=== PATIENT | female | born 1970 | race Caucasian/White ===

== ENCOUNTER → 2017-09-13 12:21 | Outpatient (CLI) | payer OTHER, SELFPAY ==
[2017-09-13 13:23] LABS: AST(SGOT) 29 U/L (15-37); Alanine Aminotransfer ALT/SGPT 52 U/L (13-56); Albumin, Serum 3.7 g/dL (3.2-5.0); Alkaline Phosphatase 40 U/L (45-117); Anion Gap 9 (5-15); BUN 10 mg/dL (7-18); BUN/Creat Ratio 11.5 RATIO (10-20); Calcium,Total 8.6 mg/dL (8.5-10.1); Chloride 106 mmol/L (98-107); Creatinine, Serum 0.87 mg/dL (0.55-1.02); EST Glomerular Filtration Rate 75 mL/min (>60); Est Glom Filt Rate - Afr Amer 91 mL/min (>60); Globulin 3.7 g/dL (2.2-4.2); Glucose 102 mg/dL (74-106); Protein, Total 7.4 g/dL (6.4-8.2); Sodium Level 140 mmol/L (136-145); Thyroid Stim Hormone (TSH) 1.15 uIU/mL (0.358-3.74)
== END ==
PROVIDERS: Family Provider Family Medicine; PCP Family Medicine; Visit Provider Family Medicine
DX: I10 Essential (primary) hypertension (principal); E03.9 Hypothyroidism, unspecified
CPT/HCPCS: 36415; 80053; 84443

== ENCOUNTER → 2018-02-01 13:04 | Outpatient (CLI) | payer OTHER, SELFPAY ==
[2018-02-01 15:55] LABS: Hemoglobin A1c 5.6 % (4.2-6.3)
[2018-02-01 16:04] LABS: Vitamin D,25 Hydroxy 38.7 ng/mL (29.95-100.01)
[2018-02-01 16:07] LABS: AST(SGOT) 32 U/L (15-37); Alanine Aminotransfer ALT/SGPT 71 U/L (13-56); Albumin, Serum 3.6 g/dL (3.2-5.0); Alkaline Phosphatase 35 U/L (45-117); Anion Gap 9 (5-15); BUN 14 mg/dL (7-18); BUN/Creat Ratio 17.8 RATIO (10-20); Calcium,Total 8.5 mg/dL (8.5-10.1); Chloride 103 mmol/L (98-107); Cholesterol 218 mg/dL (200); Creatinine, Serum 0.79 mg/dL (0.55-1.02); EST Glomerular Filtration Rate 84 mL/min (>60); Est Glom Filt Rate - Afr Amer 101 mL/min (>60); Free T3 4.6 pg/mL (2.18-3.98); Globulin 3.6 g/dL (2.2-4.2); Glucose 87 mg/dL (74-106); High Density Lipoprotein 36 mg/dL; Potassium 4.1 mmol/L (3.5-5.1); Protein, Total 7.2 g/dL (6.4-8.2); Sodium Level 139 mmol/L (136-145); T4 Free Direct 0.83 ng/dL (0.76-1.46); Thyroid Stim Hormone (TSH) 0.49 uIU/mL (0.358-3.74); Triglycerides 240 mg/dL; Very Low Density Lipoprotein 48 mg/dL (5-40)
[2018-02-01 16:52] LABS: Absolute Lymphocyte Count 2.78 X10^3/ul (0.83-4.51); Absolute Neutrophil Count 4.3 X10^3/uL (2.0-7.7); Basophil# 0.03 X10^3/uL; Basophil% 0.4 % (0-1); Eosinophil# 0.29 X10^3/uL; Eosinophils% 3.4 % (0-5); Hemoglobin 13.3 g/dl (12.0-15.0); Lymphocyte # 2.78 X10^3/ul (4.0); Lymphocyte % 32.7 % (19-41); Mean Corp Hgb Conc 32.4 g/gl (32-36); Mean Corpuscular Hgb 29.8 pg (27.0-32.0); Mean Corpuscular Volume 91.9 fL (81-99); Mean Platelet Vol. 9.6 fl (6.2-12.0); Monocyte# 1.08 X10^3/uL; Monocyte% 12.7 % (0-10); Neutrophil % 50.6 % (47-70); Platelet Count 340 K/mm3 (150-450); RBC Distribution Width CV 13.5 % (11.6-14.6); RBC Distribution Width SD 44.4 fl (35.1-43.9); Red Blood Count 4.46 M/mm3 (4.2-5.4); White Blood Count 8.5 K/mm3 (4.4-11.0)
[2018-02-01 17:02] LABS: POSITIVE COUNT NO; POSITIVE DIFFERENTIAL NO; POSITIVE MORPHOLOGY NO
== END ==
PROVIDERS: Family Provider Family Medicine; PCP Family Medicine; Referring Provider Internal Medicine Endocrinology, Diabetes & Metabolism; Visit Provider Internal Medicine Endocrinology, Diabetes & Metabolism
DX: E89.0 Postprocedural hypothyroidism (principal); R73.03 Prediabetes; E55.9 Vitamin D deficiency, unspecified
CPT/HCPCS: 36415; 80053; 80061; 82306; 83036; 84439; 84443; 84481; 85025

== ENCOUNTER → 2018-09-01 | Outpatient (CLI) | payer OTHER, SELFPAY ==
[2018-09-01 12:32] LABS: Hemoglobin A1c 5.6 % (4.2-6.3)
[2018-09-01 12:42] LABS: ALB/GLOB Ratio 0.9 RATIO (0.9-2.4); AST(SGOT) 25 U/L (15-37); Alanine Aminotransfer ALT/SGPT 49 U/L (13-56); Albumin, Serum 3.7 g/dL (3.2-5.0); Alkaline Phosphatase 39 U/L (45-117); Anion Gap 6 (5-15); BUN 14 mg/dL (7-18); BUN/Creat Ratio 16.3 RATIO (10-20); Calcium,Total 8.8 mg/dL (8.5-10.1); Chloride 105 mmol/L (98-107); Cholesterol 236 mg/dL (200); Creatinine, Serum 0.86 mg/dL (0.55-1.02); EST Glomerular Filtration Rate 75 mL/min (>60); Est Glom Filt Rate - Afr Amer 91 mL/min (>60); Free T3 5.5 pg/mL (2.18-3.98); Globulin 3.9 g/dL (2.2-4.2); Glucose 93 mg/dL (74-106); High Density Lipoprotein 39 mg/dL; Potassium 4.3 mmol/L (3.5-5.1); Protein, Total 7.6 g/dL (6.4-8.2); Sodium Level 140 mmol/L (136-145); T4 Free Direct 0.79 ng/dL (0.76-1.46); Thyroid Stim Hormone (TSH) 1.33 uIU/mL (0.358-3.74); Triglycerides 409 mg/dL
== END | disposition home or self-care (01) ==
PROVIDERS: Family Provider Family Medicine; PCP Family Medicine; Referring Provider Internal Medicine Endocrinology, Diabetes & Metabolism; Visit Provider Internal Medicine Endocrinology, Diabetes & Metabolism
DX: R73.03 Prediabetes (principal); E89.0 Postprocedural hypothyroidism
CPT/HCPCS: 36415; 80053; 80061; 83036; 84439; 84443; 84481

== ENCOUNTER → 2019-03-28 15:02 | Outpatient (CLI) | payer OTHER, SELFPAY ==
[2019-03-28 17:14] LABS: Hemoglobin A1c 5.9 % (4.2-6.3)
[2019-03-28 17:30] LABS: ALB/GLOB Ratio 1.1 RATIO (0.9-2.4); AST(SGOT) 25 U/L (15-37); Alanine Aminotransfer ALT/SGPT 55 U/L (13-56); Albumin, Serum 3.8 g/dL (3.2-5.0); Alkaline Phosphatase 38 U/L (45-117); Anion Gap 9 (5-15); BUN 13 mg/dL (7-18); BUN/Creat Ratio 15.3 RATIO (10-20); Calcium,Total 8.5 mg/dL (8.5-10.1); Chloride 104 mmol/L (98-107); Cholesterol 216 mg/dL (200); Creatinine, Serum 0.85 mg/dL (0.55-1.02); EST Glomerular Filtration Rate 76 mL/min (>60); Est Glom Filt Rate - Afr Amer 92 mL/min (>60); Free T3 3.7 pg/mL (2.18-3.98); Globulin 3.4 g/dL (2.2-4.2); Glucose 81 mg/dL (74-106); High Density Lipoprotein 35 mg/dL; Potassium 3.9 mmol/L (3.5-5.1); Protein, Total 7.2 g/dL (6.4-8.2); Sodium Level 139 mmol/L (136-145); Triglycerides 278 mg/dL; Very Low Density Lipoprotein 56 mg/dL (5-40)
== END ==
PROVIDERS: Family Provider Family Medicine; PCP Family Medicine; Referring Provider Internal Medicine Endocrinology, Diabetes & Metabolism; Visit Provider Internal Medicine Endocrinology, Diabetes & Metabolism
DX: E89.0 Postprocedural hypothyroidism (principal); E78.1 Pure hyperglyceridemia; R63.5 Abnormal weight gain
CPT/HCPCS: 36415; 80053; 80061; 83036; 84443; 84481

== ENCOUNTER → 2019-07-12 13:29 | Outpatient (CLI) | payer OTHER, SELFPAY ==
--- NOTE | 2019-07-12 13:51 | BI_ITS ---
MAMMOGRAPHY - BILATERAL SCREENING REASON FOR EXAM: Female, 49 years old. Routine annual screening examination. PERTINENT HISTORY: Non-contributory. TECHNIQUE: Digital bilateral breast tomi (3D mammographic acquisition) in the CC and MLO projections. 2-D mediolateral oblique (MLO) and craniocaudad (CC) views of both breasts were obtained. CAD: Full Field Digital Mammography with Computer Added Detection was performed. COMPARISON: Comparison is made with prior study dated November 05, 2016 and January 15, 2015. FINDINGS: Breast Composition: There are scattered areas of fibroglandular density. There are no dominant masses or suspicious calcifications. There is a 4.1 mm well-defined nodule in the central slightly medial portion of the right breast. Correlation with ultrasound is recommended. No other significant abnormalities are identified. BI/SCREEN MAMM (CAD) W/TOMI BILAT IMPRESSION: 4.1 mm well-defined nodule in the central slightly medial portion of the right breast. Correlation with ultrasound is recommended. ASSESSMENT CATEGORY: BIRADS Category 0: Incomplete. Need additional imaging evaluation. A letter regarding these results will be sent to the patient by the facility within 30 days. Approximately 10% of breast cancers are not detected by mammography. A normal mammogram should not delay biopsy of a clinically suspicious abnormality. [id number] Electronically Signed: Murali Bond, at 9:04 EST , Service support ,
== END ==
PROVIDERS: PCP Student in an Organized Health Care Education/Training Program; Referring Provider Student in an Organized Health Care Education/Training Program; Visit Provider Student in an Organized Health Care Education/Training Program
DX: Z12.31 Encounter for screening mammogram for malignant neoplasm of breast (principal)
CPT/HCPCS: 77063; 77067

== ENCOUNTER → 2019-07-18 11:00 | Outpatient (CLI) | payer OTHER, SELFPAY ==
--- NOTE | 2019-07-18 11:01 | US_ITS ---
STUDY: ULTRASOUND BREAST - RIGHT REASON FOR EXAM: Female, 49 years old. Abnormal screening mammogram. TECHNIQUE: Axial and longitudinal images of the RIGHT breast were performed with a high resolution ultrasound transducer. # OF IMAGES: 45 COMPARISON: Comparison is made with prior mammogram dated July 12, 2019. FINDINGS: RIGHT Breast: There is a 3 mm x 4 mm x 3 mm benign appearing lymph node at the 12:00 position of the breast at 1 cm from nipple. The mammographic out amount of post was 5 mm x 7 mm x 4 mm hypoechoic cystic and solid nodule at the 1:00 position of the breast at 1 cm from nipple. A biopsy recommended. US/Breast Limited Unilateral IMPRESSION: The mammographic abnormality corresponds to a 5 mm x 7 mm x 4 mm solid/cystic nodule at the 1:00 position of the breast at 1 cm from nipple. A biopsy is recommended for further evaluation. ASSESSMENT CATEGORY: BIRADS Category 4: Suspicious - Biopsy Should Be Considered. A letter regarding these results will be sent to the patient by the facility within 30 days. Electronically Signed: Murali Bond, at 12:53 EDT , Service support ,
== END ==
PROVIDERS: PCP Student in an Organized Health Care Education/Training Program; Referring Provider Student in an Organized Health Care Education/Training Program; Visit Provider Student in an Organized Health Care Education/Training Program
DX: R92.8 Other abnormal and inconclusive findings on diagnostic imaging of breast (principal)
CPT/HCPCS: 76642

== ENCOUNTER → 2019-07-25 06:29 | Outpatient (CLI) | payer OTHER, SELFPAY ==
[2019-07-25 07:09] LABS: Hematocrit 42.5 % (37-47); Mean Corp Hgb Conc 32.9 g/dL (32-36); Mean Corpuscular Hgb 30.8 pg (27.0-32.0); Mean Corpuscular Volume 93.6 fL (81-99); Mean Platelet Vol. 9.5 fl (6.2-12.0); Platelet Count 336 K/mm3 (150-450); RBC Distribution Width CV 12.9 % (11.6-14.6); RBC Distribution Width SD 44.5 fl (35.1-43.9); Red Blood Count 4.54 M/mm3 (4.2-5.4); White Blood Count 9.3 K/mm3 (4.4-11.0)
[2019-07-25 07:38] LABS: ALB/GLOB Ratio 1.2 RATIO (0.9-2.4); AST(SGOT) 28 U/L (15-37); Alanine Aminotransfer ALT/SGPT 53 U/L (13-56); Alkaline Phosphatase 41 U/L (45-117); Anion Gap 6 (5-15); BUN 12 mg/dL (7-18); BUN/Creat Ratio 13.4 RATIO (10-20); Calcium,Total 8.7 mg/dL (8.5-10.1); Chloride 106 mmol/L (98-107); Cholesterol 206 mg/dL (200); EST Glomerular Filtration Rate 72 mL/min (>60); Est Glom Filt Rate - Afr Amer 87 mL/min (>60); Globulin 3.4 g/dL (2.2-4.2); Glucose 101 mg/dL (74-106); High Density Lipoprotein 32 mg/dL; Potassium 3.7 mmol/L (3.5-5.1); Protein, Total 7.4 g/dL (6.4-8.2); Sodium Level 140 mmol/L (136-145); Triglycerides 158 mg/dL; Very Low Density Lipoprotein 32 mg/dL (5-40)
== END ==
PROVIDERS: PCP Student in an Organized Health Care Education/Training Program; Referring Provider Internal Medicine Endocrinology, Diabetes & Metabolism; Visit Provider Internal Medicine Endocrinology, Diabetes & Metabolism
DX: R73.03 Prediabetes (principal); I10 Essential (primary) hypertension; E78.2 Mixed hyperlipidemia
CPT/HCPCS: 36415; 80053; 80061; 83036; 85027

== ENCOUNTER → 2019-12-25 11:08 | Outpatient (CLI) | payer OTHER, SELFPAY ==
[2019-12-25 13:22] LABS: Vitamin D,25 Hydroxy 49.8 ng/mL
[2019-12-25 13:27] LABS: ALB/GLOB Ratio 0.9 RATIO (0.9-2.4); AST(SGOT) 23 U/L (15-37); Alanine Aminotransfer ALT/SGPT 35 U/L (13-56); Albumin, Serum 3.3 g/dL (3.2-5.0); Alkaline Phosphatase 37 U/L (45-117); Anion Gap 4 (5-15); BUN 11 mg/dL (7-18); BUN/Creat Ratio 14.2 RATIO (10-20); Calcium,Total 8.3 mg/dL (8.5-10.1); Chloride 107 mmol/L (98-107); Cholesterol 216 mg/dL (200); Creatinine, Serum 0.77 mg/dL (0.55-1.02); EST Glomerular Filtration Rate 85 mL/min (>60); Est Glom Filt Rate - Afr Amer 103 mL/min (>60); Free T3 3.7 pg/mL (2.18-3.98); Globulin 3.6 g/dL (2.2-4.2); Glucose 91 mg/dL (74-106); High Density Lipoprotein 40 mg/dL; Potassium 4.2 mmol/L (3.5-5.1); Protein, Total 6.9 g/dL (6.4-8.2); Sodium Level 137 mmol/L (136-145); T4 Free Direct 0.73 ng/dL (0.76-1.46); Thyroid Stim Hormone (TSH) 3.86 uIU/mL (0.358-3.74); Triglycerides 211 mg/dL; Very Low Density Lipoprotein 42 mg/dL (5-40)
== END ==
PROVIDERS: PCP Student in an Organized Health Care Education/Training Program; Referring Provider Internal Medicine Endocrinology, Diabetes & Metabolism; Visit Provider Internal Medicine Endocrinology, Diabetes & Metabolism
DX: E89.0 Postprocedural hypothyroidism (principal); E66.01 Morbid (severe) obesity due to excess calories; R73.03 Prediabetes; Z86.39 Personal history of other endocrine, nutritional and metabolic disease; E78.5 Hyperlipidemia, unspecified
CPT/HCPCS: 36415; 80053; 80061; 82306; 83036; 84439; 84443; 84481

== ENCOUNTER → 2020-07-28 15:24 | Outpatient (CLI) | payer OTHER, SELFPAY ==
[2020-07-28 16:37] LABS: ALB/GLOB Ratio 1.1 RATIO (0.9-2.4); AST(SGOT) 26 U/L (15-37); Alanine Aminotransfer ALT/SGPT 60 U/L (13-56); Albumin, Serum 3.8 g/dL (3.2-5.0); Alkaline Phosphatase 41 U/L (45-117); Anion Gap 7 (5-15); BUN 15 mg/dL (7-18); BUN/Creat Ratio 19.6 RATIO (10-20); Calcium,Total 8.7 mg/dL (8.5-10.1); Chloride 104 mmol/L (98-107); Cholesterol 230 mg/dL (200); Creatinine, Serum 0.77 mg/dL (0.55-1.02); EST Glomerular Filtration Rate 85 mL/min (>60); Est Glom Filt Rate - Afr Amer 103 mL/min (>60); Free T3 3.3 pg/mL (2.18-3.98); Globulin 3.5 g/dL (2.2-4.2); Glucose 95 mg/dL (74-106); High Density Lipoprotein 39 mg/dL; Potassium 3.9 mmol/L (3.5-5.1); Protein, Total 7.3 g/dL (6.4-8.2); Sodium Level 138 mmol/L (136-145); T4 Free Direct 0.64 ng/dL (0.76-1.46); Thyroid Stim Hormone (TSH) 2.48 uIU/mL (0.358-3.74); Triglycerides 311 mg/dL; Very Low Density Lipoprotein 62 mg/dL (5-40)
[2020-07-28 16:43] LABS: Hemoglobin A1c 5.6 % (3.8-5.6)
== END ==
PROVIDERS: PCP Student in an Organized Health Care Education/Training Program; Visit Provider Internal Medicine Endocrinology, Diabetes & Metabolism
DX: E89.0 Postprocedural hypothyroidism (principal); R73.03 Prediabetes; Z86.39 Personal history of other endocrine, nutritional and metabolic disease; E78.5 Hyperlipidemia, unspecified; E66.01 Morbid (severe) obesity due to excess calories
CPT/HCPCS: 36415; 80053; 80061; 83036; 84439; 84443; 84481

== ENCOUNTER → 2021-01-07 07:57 | Outpatient (CLI) | payer OTHER, SELFPAY ==
[2021-01-07 08:52] LABS: AST(SGOT) 28 U/L (15-37); Alanine Aminotransfer ALT/SGPT 42 U/L (13-56); Albumin, Serum 3.7 g/dL (3.2-5.0); Alkaline Phosphatase 46 U/L (45-117); Anion Gap 5 (5-15); BUN 17 mg/dL (7-18); Calcium,Total 8.9 mg/dL (8.5-10.1); Chloride 108 mmol/L (98-107); Cholesterol 229 mg/dL (200); Creatinine, Serum 0.85 mg/dL (0.55-1.02); EST Glomerular Filtration Rate 75 mL/min (>60); Est Glom Filt Rate - Afr Amer 91 mL/min (>60); Free T3 4.7 pg/mL (2.18-3.98); Globulin 3.8 g/dL (2.2-4.2); Glucose 108 mg/dL (74-106); High Density Lipoprotein 34 mg/dL; Potassium 4.2 mmol/L (3.5-5.1); Protein, Total 7.5 g/dL (6.4-8.2); Sodium Level 137 mmol/L (136-145); Thyroid Stim Hormone (TSH) 2.96 uIU/mL (0.358-3.74); Triglycerides 222 mg/dL; Very Low Density Lipoprotein 44 mg/dL (5-40)
== END ==
PROVIDERS: PCP Student in an Organized Health Care Education/Training Program; Referring Provider Internal Medicine Endocrinology, Diabetes & Metabolism; Visit Provider Internal Medicine Endocrinology, Diabetes & Metabolism
DX: E89.0 Postprocedural hypothyroidism (principal); E78.5 Hyperlipidemia, unspecified; R73.03 Prediabetes; E66.01 Morbid (severe) obesity due to excess calories; E55.9 Vitamin D deficiency, unspecified
CPT/HCPCS: 36415; 80053; 80061; 84443; 84481

== ENCOUNTER 2021-07-29 07:30 | Outpatient (CLI) | payer OTHER, SELFPAY ==
[2021-07-29 08:19] LABS: Hematocrit 42.9 % (37-47); Hemoglobin 14.7 g/dL (12.0-15.0); Mean Corp Hgb Conc 34.3 g/dL (32-36); Mean Corpuscular Hgb 31.7 pg (27.0-32.0); Mean Corpuscular Volume 92.5 fL (81-99); Mean Platelet Vol. 9.9 fl (6.2-12.0); Platelet Count 311 K/mm3 (150-450); RBC Distribution Width CV 13.2 % (11.6-14.6); RBC Distribution Width SD 45.3 fl (35.1-43.9); Red Blood Count 4.64 M/mm3 (4.2-5.4); White Blood Count 8.3 K/mm3 (4.4-11.0)
[2021-07-29 08:52] LABS: AST(SGOT) 26 U/L (15-37); Alanine Aminotransfer ALT/SGPT 44 U/L (13-56); Albumin, Serum 3.5 g/dL (3.2-5.0); Alkaline Phosphatase 48 U/L (45-117); Anion Gap 4 (5-15); BUN 14 mg/dL (7-18); BUN/Creat Ratio 17.7 RATIO (10-20); Calcium,Total 8.9 mg/dL (8.5-10.1); Chloride 107 mmol/L (98-107); Cholesterol 224 mg/dL (200); Creatinine, Serum 0.79 mg/dL (0.55-1.02); EST Glomerular Filtration Rate 82 mL/min (>60); Est Glom Filt Rate - Afr Amer 99 mL/min (>60); Globulin 3.4 g/dL (2.2-4.2); Glucose 110 mg/dL (74-106); High Density Lipoprotein 37 mg/dL; Potassium 4.1 mmol/L (3.5-5.1); Protein, Total 6.9 g/dL (6.4-8.2); Sodium Level 138 mmol/L (136-145); Triglycerides 217 mg/dL; Very Low Density Lipoprotein 43 mg/dL (5-40)
== END 2021-07-29 23:59 | disposition home or self-care (01) ==
PROVIDERS: PCP Student in an Organized Health Care Education/Training Program; Referring Provider Student in an Organized Health Care Education/Training Program; Visit Provider Student in an Organized Health Care Education/Training Program
DX: I10 Essential (primary) hypertension (principal)
CPT/HCPCS: 36415; 80053; 80061; 85027

== ENCOUNTER 2023-08-11 13:30 | Outpatient (RCR) | payer OTHER, SELFPAY ==
--- NOTE | 2023-06-30 14:03 | HP.PTEVAL ---
Patient's Visit Information Visit Information Visit Information: AGATA BAHENA is a 53 year old F referred to Physical Therapy by Dr. Gurvinder Kaur DPM with a diagnosis of Achilles tendinitis left, M76.62; Calcaneal spur left M77.32. Date of Evaluation: 06/30/23 Physical Therapist: Pedrito Biswas Visit Plan Frequency: 2x /Week Duration: 6 Weeks Plan: Continue with eccentric calf strengthening, LE flexibility exercises, ankle strengthening, and balance exercises. Use manual therapy, modalities, and dry needling as needed for pain control. Subjective Subjective: Pt. is a 53 y.o. female who has been having left heel/foot pain for about 3-4 years with no specific injury that she is aware of. 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 Pt. denies any numbness or tingling in her foot. Pt. will wear either tennis shoes or crock shoes which are less than a year old. Pt. has difficulty with first step in the morning, getting out of a car, standing/walking for longer than 30 minutes, ascending/descending stairs, housework, yard work, and work activity. 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 Her goal with physical therapy is to get rid of the pain and know what exercises to do as well as avoid surgery. She has had previous physical therapy for plantar fasciitis in the past. Pt. denies any pain currently, at worst 8/10 and describes the pain as dull and occasionally sharp. She just finished a steriod pack which has helped. Her PMH includes HBP controlled with medication, , thyroid removed, right hand carpal tunnel surgery, and tubal ligation. Pt. lives with her family in a two story home. Her hobbies include raising ducks and geese and riding [employer]. Objective Objective: Palpation- No tenderness to palpation Left ankle AROM DF 10 degrees, PF 35 degrees, Inversion 54 degrees, Eversion 15 degrees Right ankle AROM DF 14 degrees, PF 38 degrees, Inversion 58 degrees, Eversion 10 degrees Left LE strength hip flexion 5/5, abduction 5/5, adduction 5/5, extension 5/5, knee flexion 5/5, knee extension 5/5, ankle DF 5/5, PF 4+/5, Inversion 5/5, Eversion 5/5 Right LE strength hip flexion 5/5, abduction 5/5, adduction 5/5, extension 5/5, knee flexion 5/5, knee extension 5/5, ankle DF 5/5, PF 5/5, Inversion 5/5, Eversion 5/5 Tandem stance left [30 secs], right [30 secs] SLS left [30 secs] right [15 secs] Special tests- Anterior drawer [-], Talar tilt [-], Metatarsal squeeze [-], Bahena's test [-], Windlass test [-] Gait- Pt. ambulates with no gait deviations. Stairs- Pt. ascends/descends stairs with alternating step pattern and handrail. Balance/Special Test Scores Lower Extremity Functional Score: 70 Goals Goal 1:: Pt. will report no pain with first step in the morning. Goal Time Frame: 4-6 Weeks Goal 2:: Pt. will be able to stand/walk for at least 1 hour with left foot/heel pain < 3/10. Goal Time Frame: 4-6 Weeks Goal 3:: Pt. will be able to get into/out of the car with no pain. Goal Time Frame: 4-6 Weeks Goal 4:: Pt. will be able to ascend/descend a flight of stairs with alternating step pattern and no heel pain. Goal Time Frame: 4-6 Weeks Goal 5:: Pt. will rate heel/foot pain at worst at 3/10 with ADL's. Goal Time Frame: 4-6 Weeks Goal 6:: Pt. will improve LEFS score <10% impairment in order to improve mobility. Goal Time Frame: 4-6 Weeks Rehabilitation Potential Physical Therapy Diagnosis: Decreased LE flexibility, LE weakness, difficulty walking, and pain Rehabilitation Potential: Good Anticipated Interventions Patient/Client Instruction: Educate patient on: Condition, Plan of Care and Benefits of Fitness Program For the Purpose of:: To decrease pain, To improve ability to perform ADL's, To improve performance and independence with ADL's, To assume or resume ADL's and To improve tolerance to ADL's Therapeutic Exercise to Include: Strength training, Balance training, Flexibilty training, Gait and locomotor training and Active ROM Comment: Continue with eccentric calf raises, LE flexibility exercises, ankle strengthening, and balance exercises. For the Purpose of:: To decrease pain, To improve ability to perform ADL's, To improve performance and independence with ADL's, To increase flexibility/ROM, To improve balance, To assume or resume ADL's and To improve tolerance to ADL's Functional Training to Include: ADL Training and Gait training For the Purpose of:: To decrease pain, To improve ability to perform ADL's, To improve performance and independence with ADL's, To assume or resume ADL's and To improve tolerance to ADL's Manual Therapy Techniques to Include: Mobilization, Passive ROM, Functional dry needling and Soft tissue mobilization For the Purpose of:: To decrease pain, To improve ability to perform ADL's, To improve performance and independence with ADL's, To increase flexibility/ROM, To assume or resume ADL's and To improve tolerance to ADL's Iontophoresis (with Dexamethozone, with Acetic acid): Yes Cryotherapy (ice pack, ice massage): Yes Ultrasound (thermal/non thermal): Yes Vasopneumatic device: Yes For the Purpose of:: To decrease pain, To improve ability to perform ADL's, To improve performance and independence with ADL's, To assume or resume ADL's and To improve tolerance to ADL's Text: Thank you for the opportunity to evaluate your patient. For Medicare and Medicare HMO plans, please review the plan of care and approve it. It will need to be FAXED BACK to us at [phone] for Medicare purposes. For Medicare only, by signing this I certify the plan of care. Please let me know if there are questions or concerns regarding this plan of care. Physician Signature: Date:
--- NOTE | 2023-07-26 09:29 | HP.PTREVAL ---
Re-Evaluation Intro: Dr. Gurvinder Kaur, DPM, It has been my pleasure to treat AGATA BAHENA over the last 6 visits for Achilles tendinitis left, M76.62; Calcaneal spur left M77.32. Please see the progress note below for an update on the physical therapy plan of care! Subjective Subjective: Pt reports decreased pain with getting out of bed in the morning and has been able to go up and down stairs with less pain. Still having some pain with initial step up on stairs and when getting up from sitting for a prolonged period, but stretching before getting up helps. Objective Objective/Function: ROM: 10 deg DF, tightness at end range, INV 40 deg, EV 15 deg, PF 50 deg MMT: 5/5 global L ankle strength, some twinge of pain with resisted PF+INV GAIT: normalized pattern with no AD STAIRS: reciprocal pattern, had pain with first step, prompted pt to place whole foot on stair to provide more stability and less pull on L heel, felt better SQUAT: no pull in ankle Pt demo's improved strength, ROM, tolerance to ex, stair navigation, and gait with less pain. Plan Plan Plan: Pt to attempt HEP indep for 3 weeks, scheduled appt in 3 weeks and pt to come back if still having pain. If pt cancels appt, d/c home. Balance/Gait/Functional tests Balance/Special Test Scores Lower Extremity Functional Score: 70 Goals Goals Goal 1:: Pt. will report no pain with first step in the morning. Goal Time Frame: 4-6 Weeks Goal Progress: Goal Met Goal 2:: Pt. will be able to stand/walk for at least 1 hour with left foot/heel pain < 3/10. Goal Time Frame: 4-6 Weeks Goal Progress: Goal Met Goal 3:: Pt. will be able to get into/out of the car with no pain. Goal Time Frame: 4-6 Weeks Goal Progress: Goal Met Goal 4:: Pt. will be able to ascend/descend a flight of stairs with alternating step pattern and no heel pain. Goal Time Frame: 4-6 Weeks Goal Progress: Pain with first step only Goal 5:: Pt. will rate heel/foot pain at worst at 3/10 with ADL's. Goal Time Frame: 4-6 Weeks Goal Progress: Goal Met Goal 6:: Pt. will improve LEFS score <10% impairment in order to improve mobility. Goal Time Frame: 4-6 Weeks Goal Progress: DNT Anticipated Interventions Anticipated Interventions Patient/Client Instruction: Educate patient on: Condition, Plan of Care and Benefits of Fitness Program For the Purpose of:: To decrease pain, To improve ability to perform ADL's, To improve performance and independence with ADL's, To assume or resume ADL's and To improve tolerance to ADL's Therapeutic Exercise to Include: Strength training, Balance training, Flexibilty training, Gait and locomotor training and Active ROM Comment: Continue with eccentric calf raises, LE flexibility exercises, ankle strengthening, and balance exercises. For the Purpose of:: To decrease pain, To improve ability to perform ADL's, To improve performance and independence with ADL's, To increase flexibility/ROM, To improve balance, To assume or resume ADL's and To improve tolerance to ADL's Functional Training to Include: ADL Training and Gait training For the Purpose of:: To decrease pain, To improve ability to perform ADL's, To improve performance and independence with ADL's, To assume or resume ADL's and To improve tolerance to ADL's Manual Therapy Techniques to Include: Mobilization, Passive ROM, Functional dry needling and Soft tissue mobilization For the Purpose of:: To decrease pain, To improve ability to perform ADL's, To improve performance and independence with ADL's, To increase flexibility/ROM, To assume or resume ADL's and To improve tolerance to ADL's Iontophoresis (with Dexamethozone, with Acetic acid): Yes Cryotherapy (ice pack, ice massage): Yes Ultrasound (thermal/non thermal): Yes Vasopneumatic device: Yes For the Purpose of:: To decrease pain, To improve ability to perform ADL's, To improve performance and independence with ADL's, To assume or resume ADL's and To improve tolerance to ADL's Re-Evaluation Ending Re-evaluation ending: Please do not hesitate to contact me at [phone] by phone or if you have questions or concerns regarding this new plan of care! Sincerely, Cristian Hernandez DPT
--- NOTE | 2023-08-11 14:26 | HP.PTDCSUM ---
Discharge Summary D/C summary: It has been my pleasure to treat AGATA BAHENA referred by Dr. Gurvinder Kaur, KAYLEE, with the diagnosis of Achilles tendinitis left, M76.62; Calcaneal spur left M77.32 for a total of 7 visit(s). Discharge Date: 08/11/23 Please see the following information for a summary of their discharge status. Subjective Subjective: Pt presents to PT with some soreness still in L lateral heel. Pt still having difficulty with pushing off when walking up stairs, but feels ROM and calf is better. Is waiting to have an MRI until this fall when she may consider sx. Pain L achilles: Pain Intensity (Out of 10): 1 Overall Improvement % Improvement: 50 Objective Objective/Function: ROM: WNL, some early firm end feel into EV and hypomobility of L calcaneus and forefoot MMT: 5/5 strength GAIT: normal pattern STAIRS: reciprocal pattern, cued pt to place whole foot on step when leading with LLE, no pain with ascending like at home Pt overall has improved ROM and calf extensibility and ankle strength, noted some hypomobility of calcaneus and forefoot which affect EV ROM, no pain at end range. Pts major deficits still going up stairs d/t heel pain, but shoes seemed to help decrease pain and offer support to superficial structures. Pt appropriate to d/c home and continue HEP at home, focusing on stretching Goals Goal 1:: Pt. will report no pain with first step in the morning. Goal Progress: Goal Met Goal 2:: Pt. will be able to stand/walk for at least 1 hour with left foot/heel pain < 3/10. Goal Progress: Goal Met Goal 3:: Pt. will be able to get into/out of the car with no pain. Goal Progress: Goal Met Goal 4:: Pt. will be able to ascend/descend a flight of stairs with alternating step pattern and no heel pain. Goal Progress: Pain with first step only Goal 5:: Pt. will rate heel/foot pain at worst at 3/10 with ADL's. Goal Progress: Goal Met Goal 6:: Pt. will improve LEFS score <10% impairment in order to improve mobility. Goal Progress: DNT Plan Plan: Pt to d/c home with HEP, will f/u with doctor in fall to see about possible sx. D/C Information Discharge Comments: Pt met goals and appropriate to d/c home with indep HEP d/c sentence: If there are questions or concerns regarding this patient's physical therapy, please feel free to call me at [phone]. Thank you for the referral of this patient. Sincerely, Cristian Hernandez, DPT Balance/Gait/Functional tests Balance/Special Test Scores Lower Extremity Functional Score: 62 Improvement % Improvement: 50
== END 2023-08-11 19:00 | disposition home or self-care (01) ==
LOC: PT 13:30
PROVIDERS: PCP Student in an Organized Health Care Education/Training Program; Referring Provider Podiatrist; Visit Provider Podiatrist
DX: M76.62 Achilles tendinitis, left leg (principal)
CPT/HCPCS: 97035; 97110; 97140; 97161; 97530

== ENCOUNTER → 2023-10-24 | Outpatient (CLI) | payer OTHER, SELFPAY ==
[2023-10-24 14:55] LABS: Hematocrit 41.5 % (37-47); Hemoglobin 13.5 g/dL (12.0-15.0); Mean Corp Hgb Conc 32.5 g/dL (32-36); Mean Corpuscular Volume 95.2 fL (81-99); Mean Platelet Vol. 9.6 fl (6.2-12.0); Platelet Count 293 K/mm3 (150-450); RBC Distribution Width CV 13.2 % (11.6-14.6); RBC Distribution Width SD 46.4 fl (35.1-43.9); Red Blood Count 4.36 M/mm3 (4.2-5.4); White Blood Count 9.8 K/mm3 (4.4-11.0)
[2023-10-24 15:29] LABS: Vitamin D,25 Hydroxy 54.9 ng/mL
[2023-10-24 18:13] LABS: ALB/GLOB Ratio 1.1 RATIO (0.9-2.4); AST(SGOT) 30 U/L (15-37); Alanine Aminotransfer ALT/SGPT 56 U/L (13-56); Albumin, Serum 3.9 g/dL (3.2-5.0); Alkaline Phosphatase 53 U/L (45-117); Anion Gap 5 (5-15); BUN 18 mg/dL (7-18); BUN/Creat Ratio 18.8 RATIO (10-20); Calcium,Total 9.4 mg/dL (8.5-10.1); Chloride 105 mmol/L (98-107); Cholesterol 233 mg/dL (200); Creatinine, Serum 0.96 mg/dL (0.55-1.02); EST Glomerular Filtration Rate 65 mL/min (>60); Est Glom Filt Rate - Afr Amer 79 mL/min (>60); Free T3 3.9 pg/mL (2.18-3.98); Globulin 3.5 g/dL (2.2-4.2); Glucose 100 mg/dL (74-106); High Density Lipoprotein 39 mg/dL; Potassium 3.9 mmol/L (3.5-5.1); Protein, Total 7.4 g/dL (6.4-8.2); Sodium Level 139 mmol/L (136-145); T4 Free Direct 0.68 ng/dL (0.76-1.46); Thyroid Stim Hormone (TSH) 4.21 uIU/mL (0.358-3.74); Triglycerides 256 mg/dL; Very Low Density Lipoprotein 51 mg/dL (5-40)
[2023-10-24 22:25] LABS: Microalbumin,Random Urine 7.5 mg/L (NO RANGE EST.); Microalbumin:Creatinine Ratio 7.8 mg/g CRE (<30 mg/g CRE)
[2023-10-24 23:23] LABS: Hemoglobin A1c 5.8 % (3.8-5.6)
== END | disposition home or self-care (01) ==
LOC: PAVLAB 14:20
PROVIDERS: PCP Student in an Organized Health Care Education/Training Program; Referring Provider Student in an Organized Health Care Education/Training Program; Visit Provider Student in an Organized Health Care Education/Training Program
DX: R73.03 Prediabetes (principal); E78.2 Mixed hyperlipidemia; E03.9 Hypothyroidism, unspecified; I10 Essential (primary) hypertension; E55.9 Vitamin D deficiency, unspecified
CPT/HCPCS: 36415; 80053; 80061; 82043; 82306; 82570; 83036; 84439; 84443; 84481; 85027

== ENCOUNTER → 2023-12-17 | Outpatient (CLI) | payer OTHER, SELFPAY ==
[2023-12-17 11:48] LABS: Free T3 4.9 pg/mL (2.18-3.98); T4 Free Direct 0.71 ng/dL (0.76-1.46); Thyroid Stim Hormone (TSH) 1.74 uIU/mL (0.358-3.74)
== END | disposition home or self-care (01) ==
LOC: LAB 10:20
PROVIDERS: PCP Student in an Organized Health Care Education/Training Program; Referring Provider Student in an Organized Health Care Education/Training Program; Visit Provider Student in an Organized Health Care Education/Training Program
DX: E89.0 Postprocedural hypothyroidism (principal)
CPT/HCPCS: 36415; 84439; 84443; 84481

== ENCOUNTER 2024-04-03 13:00 | Outpatient (RCR) | payer OTHER, SELFPAY ==
--- NOTE | 2024-02-13 14:07 | HP.PTEVAL_ITS ---
Patient's Visit Information Visit Information Visit Information: AGATA BAHENA is a 54 year old F referred to Physical Therapy by KENNY MOSQUEDA with a diagnosis of Achilles tear surgery 12/19/23. Date of Evaluation: 02/13/24 Physical Therapist: Art Millan, PT, ATC Visit Plan Frequency: 2x /Week Duration: 4-6 Weeks Plan: Gastroc and achilles stretching, L ankle strengthening and mobility, balance and proprio, core strengthening Subjective Subjective: Pt reports she had achilles surgery 12/19/23 on L ankle. Pt reports she started having severe L heel pain at the end of last year; states she had a bone spur which caused it to rub on her achilles which causes it to tear. States she has the boot on when WBing and is only allowed to take it off when sitting; states she hasn't moved her ankle very much since surgery. Pt reports difficulties with DF, ambulation, stairs, and cleaning. States she lives in a 2- story home and has 13 steps to go upstairs to get to her bedroom and bathroom. States she will elevate her L ankle, take ibuprophen, and ice to alleviate her pain. Pt reports she will use her knee scooter when ambulating community dista nces and when she has her boot off at home. States she would like to get back to taking care of her animals, getting a shoe on, ambulating on uneven ground, and cleaning. Pt reports numbness and tingling on bottom of her foot and posterior aspect on L ankle. States her pain is 0/10 at rest and is a 4/10 at its worst. Pt reports pain doesn't affect her sleep. Pain L ankle: Pain Intensity (Out of 10): 0 Pain Intensity Range: 4 Objective Objective: NEURO: sensation WNL B to light touch ROM: R ankle DF= 13, PF= 57; L ankle DF= 6, PF= 47 MMT: R ankle DF= 64, PF= 48; L ankle DF= 28, PF= 31 #F TU.20 sec Balance/Special Test Scores Lower Extremity Functional Score: 44 Goals Goal 1:: Pt will be I with HEP. Goal Time Frame: 4-6 Weeks Goal 2:: Pt will increase L ankle strength to within 90% of R ankle to aid with work activities. Goal Time Frame: 4-6 Weeks Goal 3:: Pt will increase L ankle ROM to within 90% of R ankle to aid with negotiating stairs. Goal Time Frame: 4-6 Weeks Goal 4:: Pt will complete a TUG in under 10 sec to aid with community ambulation. Goal Time Frame: 4-6 Weeks Rehabilitation Potential Physical Therapy Diagnosis: Decreased L ankle mobility and strength Rehabilitation Potential: Good Anticipated Interventions Patient/Client Instruction: Educate patient on: Plan of Care Therapeutic Exercise to Include: Strength training, Balance training, Body mechanics, Flexibilty training and Dynamic Lumbar Stabilization For the Purpose of:: To decrease pain, To increase ROM, To improve muscle performance and motor function, To increase tolerance to activity/condition/position and To improve ability of physical actions for home/community/work/leisure Text: Thank you for the opportunity to evaluate your patient. For Medicare and Medicare HMO plans, please review the plan of care and approve it. It will need to be FAXED BACK to us at [phone] for Medicare purposes. For Medicare only, by signing this I certify the plan of care. Please let me know if there are questions or concerns regarding this plan of care. Physician Signature: Date:
--- NOTE | 2024-03-07 12:33 | HP.PTREVAL ---
Re-Evaluation Intro: KENNY MOSQUEDA, It has been my pleasure to treat AGATA BAHENA over the last 6 visits for Achilles tear surgery 12/19/23. Please see the progress note below for an update on the physical therapy plan of care! Subjective Subjective: I am getting better, but my heel still hurts where the surgery was. Objective Objective/Function: L achilles pain ranges from 2-4/10 L ankle ROM: DF= 4, PF=47 degrees L ankle MMT: DF= 33, PF= 46 #F TU.87 sec Pt is I with hep Plan Plan Plan: Follow up or discharge in 4 weeks after DrMaycol visit. Balance/Gait/Functional tests Balance/Special Test Scores Lower Extremity Functional Score: 64 Goals Goals Goal 1:: Pt will be I with HEP. Goal Time Frame: 4-6 Weeks Goal Progress: Goal Met Goal 2:: Pt will increase L ankle strength to within 90% of R ankle to aid with work activities. Goal Time Frame: 4-6 Weeks Goal Progress: Goal Met Goal 3:: Pt will increase L ankle ROM to within 90% of R ankle to aid with negotiating stairs. Goal Time Frame: 4-6 Weeks Goal Progress: Progressing Goal 4:: Pt will complete a TUG in under 10 sec to aid with community ambulation. Goal Time Frame: 4-6 Weeks Goal Progress: Goal Met Anticipated Interventions Anticipated Interventions Patient/Client Instruction: Educate patient on: Plan of Care Therapeutic Exercise to Include: Strength training, Balance training, Body mechanics, Flexibilty training and Dynamic Lumbar Stabilization For the Purpose of:: To decrease pain, To increase ROM, To improve muscle performance and motor function, To increase tolerance to activity/condition/position and To improve ability of physical actions for home/community/work/leisure Re-Evaluation Ending Re-evaluation ending: Please do not hesitate to contact me at [phone] by phone or if you have questions or concerns regarding this new plan of care! Sincerely, Art Millan, PT, ATC
--- NOTE | 2024-04-03 13:28 | HP.PTDCSUM ---
Discharge Summary D/C summary: It has been my pleasure to treat AGATA BAHENA referred by KENNY MOSQUEDA, with the diagnosis of Achilles tear surgery 12/19/23 for a total of 7 visit(s). Discharge Date: Please see the following information for a summary of their discharge status. Subjective Subjective: I just dont feel like I am where I want to be. Pain L ankle: Pain Intensity (Out of 10): 1 Overall Improvement % Improvement: 75 Objective Objective/Function: L heel pain ranges from 1-4/10 Pt is I with HEP L ankle MMT: DF= 36, PF= 46 #F L ankle ROM: DF= 7 degrees Goals Goal 1:: Pt will be I with HEP. Goal Progress: Goal Met Goal 2:: Pt will increase L ankle strength to within 90% of R ankle to aid with work activities. Goal Progress: Goal Met Goal 3:: Pt will increase L ankle ROM to within 90% of R ankle to aid with negotiating stairs. Goal Progress: Progressing Goal 4:: Pt will complete a TUG in under 10 sec to aid with community ambulation. Goal Progress: Goal Met Plan Plan: Discharge to [facility] D/C Information d/c sentence: If there are questions or concerns regarding this patient's physical therapy, please feel free to call me at [phone]. Thank you for the referral of this patient. Sincerely, Art Millan, PT, ATC Balance/Gait/Functional tests Balance/Special Test Scores Lower Extremity Functional Score: 65 Improvement % Improvement: 75
== END 2024-04-03 19:00 | disposition home or self-care (01) ==
LOC: PT 13:00
PROVIDERS: PCP Student in an Organized Health Care Education/Training Program
DX: M67.88 Other specified disorders of synovium and tendon, other site (principal)
CPT/HCPCS: 97035; 97110; 97161; 97530